=== PATIENT | female | born 1955 | race Caucasian/White ===

== ENCOUNTER 2017-05-03 19:53 | Emergency (ER) | payer OTHER ==
[~2017-05-03] VITALS: Ht 160 cm; Wt 76.5 kg
[~2017-05-03 19:53] MED LIST: ACET-1145 PO; CEPH-443 PO
[2017-05-03 19:57] VITALS: Ht 160 cm; Wt 76.5 kg
[2017-05-03] MEDS ORDERED: ACET-2047 PO (21:07)
[2017-05-03] MEDS ORDERED: VALA10004 PO (21:07)
[2017-05-03] MEDS ORDERED: HYDR-842 PO (21:07)
[2017-05-03] MEDS ORDERED: VALACYCLOVIR 500 MG TAB PO STA (21:08)
--- NOTE | 2017-05-03 23:32 | ERD ---
ER Documentation Chief Complaint Date/Time DATE: 05/03/17 TIME: 23:30 Chief Complaint headache x 3 days HPI This is a 8-year-old female presenting to the emergency department complaining of a burning and itchy rash on her right side of her scalp and her right mandibular region past 3 days. Patient denies fever. Denies any ear pain. She does take an medication for this ROS All systems reviewed and are negative except as per history of present illness. Medications Home Meds Active Scripts Acetaminophen* (Acetaminophen*) 650 Mg Tablet, 650 MG PO Q6H Y for PAIN AND OR ELEVATED TEMP, #30 TAB Prov:MARKY AVILA PA-C 05/03/17 Hydroxyzine Hcl* (Atarax*) 25 Mg Tab, 25 MG PO Q6H Y for ITCHING, #30 TAB Prov:MARKY AVILA PA-C 05/03/17 Valacyclovir HCl (Valtrex) 1,000 Mg Tablet, 1000 MG PO TID for 7 Days, TAB Prov:MARKY AVILA PA-C 05/03/17 Acetaminophen-Codeine (Tylenol With Codeine #3 Tablet) 300-30 Mg Tablet, 1 TAB PO Q4H Y for PAIN, #14 TAB Prov:KAVITHA ELLIOTT DO 05/22/15 Cephalexin* (Keflex*) 500 Mg Capsule, 500 MG PO BID for 7 Days, CAP Prov:KAVITHA ELLIOTT DO 05/22/15 Allergies Allergies: Coded Allergies: No Known Allergy (Unverified , 05/21/15) PMhx/Soc Medical and Surgical Hx: pt denies Medical Hx, pt denies Surgical Hx Hx Alcohol Use: Yes Hx Substance Use: No Hx Tobacco Use: No Smoking Status: Never smoker Physical Exam Vitals Vital Signs Date Time Temp Pulse Resp B/P Pulse Ox O2 Delivery O2 Flow Rate FiO2 05/03/17 19:57 97.8 70 10 150/88 98 Physical Exam Const: Palpable and there is no acute distress Head: Atraumatic Eyes: Normal Conjunctiva ENT: Normal External Ears, Nose and Mouth. Neck: Full range of motion..~ No meningismus. Resp: Clear to auscultation bilaterally Cardio: Regular rate and rhythm, no murmurs Abd: Soft, non tender, non distended. Normal bowel sounds Skin: Erythematous vesicular rash on the right side of the scalp and a few erythematous vesicle on the right mandibular region Back: No midline or flank tenderness Ext: No cyanosis, or edema Neur: Awake and alert Psych: Normal Mood and Affect Results 24 hrs Current Medications Medications (Trade) Dose Ordered Sig/Rachael Route PRN Reason Start Time Stop Time Status Last Admin Dose Admin Valacyclovir HCl (Valtrex) 1,000 mg ONCE STAT PO 05/03/17 21:08 05/03/17 21:09 DC 05/03/17 21:20 Procedures/MDM 8-year-old female presents to the emergency department with a rash on the right side of her scalp and right mandibular region likely due to shingles versus other dermatitis. Patient appears well, there is no evidence of vestibular involvement. Patient was given prescription for valacyclovir, Atarax and discussed the follow-up with PCP. Departure Diagnosis: Primary Impression: Shingles Condition: Stable Patient Instructions: Shingles (Herpes Zoster) Additional Instructions: Visite a rodrigues maurisio patel para un EXAMEN.Regrese a estas instalaciones si no se mejora flory esperbamos o flory le dijimos. Talihina toda la medicina joan y flory se le indic. Regrese a estas instalaciones si no se mejora flory esperbamos o flory le dijimos. MARKY AVILA PA-C May 03, 2017 23:32
== END 2017-05-03 21:40 | disposition home or self-care (01) ==
LOC: FTE 19:53 → EDUNIT# 19:53 → FTE 21:40
DX: B02.9 Zoster without complications (principal)
CPT/HCPCS: Z7502; Z7610; 99284